=== PATIENT | female | born 1950 | race Caucasian/White ===

== ENCOUNTER → 2020-11-12 | Outpatient (CLI) | payer MEDICARE, OTHER | LOC: CT 14:35 | DX: R10.13 Epigastric pain (principal); R79.89 Other specified abnormal findings of blood chemistry; K76.89 Other specified diseases of liver | CPT/HCPCS: 74160; Q9967 ==

== ENCOUNTER → 2020-11-17 | Outpatient (CLI) | payer MEDICARE, OTHER | LOC: NM 08:48 | DX: R10.11 Right upper quadrant pain (principal) | CPT/HCPCS: 78226; A9537 ==